=== PATIENT | female | born 1960 | race Caucasian/White ===

== ENCOUNTER 2024-10-04 16:08 | Emergency (ER) | payer BC, MEDICARE, MEDICAID, SELFPAY ==
[2024-10-04] VITALS (50 sets, daily range): BP systolic 145–190; BP diastolic 51–98; PULSE 69–94; TEMP 37.2; O2SAT 55–99; BMI 34.3
--- NOTE | 2024-10-04 16:12 | CT_ITS ---
The [address] [address] Patient Name: JOE KINCAID MRN: [id number] date: 1960 Sex: F Assigned Patient Location: ER Current Patient Location: ER Accession/Order Number: [id number] Exam Date: 10/04/2024 16:18 Report Date: 10/04/2024 16:56 At the request of: JOVI GRAY Procedure: CT stroke head/brain wo con EXAMINATION: CT stroke head/brain wo con TECHNIQUE: Axial CT images were obtained through the brain. Sagittal and coronal reformatted images were also obtained. Dose reduction techniques were achieved by using automated exposure control and/or adjustment of mA and/or kV according to patient size and/or use of iterative reconstruction technique. HISTORY: Confusion COMPARISON: None. FINDINGS: Intracranial Bleed: No evidence for acute intracranial bleed. Intracranial Mass: 10 mm extra-axial soft tissue density overlying the right frontal lobe superiorly. No mass effect or midline shift Extra-axial spaces: The ventricular system is normal caliber. White/[place] Matter: No acute cortical infarct. No significant white matter abnormality. Skull/Scalp: No evidence for skull fracture or lesion. Orbits and sinuses: The orbits appear unremarkable. Mild chronic appearing nodular mucosal thickening of the maxillary and sphenoid sinuses. CT/CT stroke head/brain wo con IMPRESSION: No convincing evidence for acute intracranial bleed. Small extra-axial soft tissue nodular focus over the right frontal lobe with apparent chronic pressure deformity of inner table of the skull. Question meningioma. Pre and postcontrast MRI of the brain should be considered for further evaluation. Electronically authenticated by: [email or web address] SANTOYO Date: 10/04/2024 16:56
--- NOTE | 2024-10-04 16:12 | ED.AMS1 ---
Documented by User: IAN Land 10/04/24 21:33 HPI - Altered Mental Status General Chief Complaint: Altered Mental Status Stated Complaint: AMS Time Seen by Provider: 10/04/24 16:12 Source: patient and EMR Mode of arrival: ambulance Limitations: altered mental status History of Present Illness HPI narrative: Patient is a 64-year-old female with a history of pulmonary embolism, end-stage renal disease on dialysis brought to the emergency department by EMS for altered mental status. Patient is able to tell that she is in a hospital and after thinking for several seconds knows that it is September 2024, she knows that she got dialysis in [place] where she lives but has no idea how she got to [facility] over 1 hour away. Patient knows that she finished dialysis around 1030 this morning. She arrives to this emergency department 6 hours later and is unable to account for how she got to the area. She does not believe she had any falls or injuries, EMS did not note any damage to her vehicle. She states she has been feeling more short of breath in the last day but has not had any significant fever, vomiting or chest pain. She states she has been on Eliquis for several months for a pulmonary embolism. She notes that she finished her entire dialysis treatment today. She states she feels weak all over but does not have any unilateral weakness, headaches or visual changes. She has chronic neuropathy to her feet that is not worse or different today. Related Data Home Medications ?Medication ?Instructions ?Recorded ?Confirmed amitriptyline 10 mg tablet 10 mg PO .QHS 10/04/24 10/05/24 amlodipine 10 mg tablet 10 mg PO DAILY 10/04/24 10/04/24 apixaban 5 mg tablet (Eliquis) 5 mg PO BID 10/04/24 10/04/24 aspirin 81 mg chewable tablet 81 mg PO DAILY 10/04/24 10/04/24 (Justus Chewable Low Dose Aspirin) calcium acetate 667 mg tablet 667 mg PO TID 10/04/24 10/04/24 carvedilol 25 mg tablet (Coreg) 25 mg PO BID 10/04/24 10/04/24 clonazepam 0.5 mg tablet (Klonopin) 0.25 mg PO BID PRN anxiety 10/04/24 10/05/24 doxazosin 8 mg tablet 8 mg PO DAILY 10/04/24 10/04/24 gabapentin 300 mg capsule 300 mg PO BID 10/04/24 10/04/24 (Neurontin) insulin glargine 100 unit/mL 10 unit subcut QPM 10/04/24 10/04/24 subcutaneous solution (Lantus U-100 Insulin) insulin lispro 100 unit/mL 5 unit subcut TID 10/04/24 10/04/24 subcutaneous solution levothyroxine 200 mcg tablet 200 mcg PO DAILY 10/04/24 10/04/24 (Synthroid) losartan 50 mg tablet 50 mg PO BID 10/04/24 10/04/24 omeprazole 40 mg capsule,delayed 40 mg PO DAILY 10/04/24 10/04/24 release torsemide 100 mg tablet 100 mg PO .CELINE, MAURO, MAYURI, SAT 10/04/24 10/04/24 tramadol 50 mg tablet 50 mg PO Q12H 10/04/24 10/04/24 isosorbide mononitrate 30 mg 30 mg PO DAILY 10/05/24 10/05/24 tablet,extended release 24 hr Allergies Allergy/AdvReac Type Severity Reaction Status Date / Time acetaminophen (From [address]) Allergy Severe Swelling Verified 10/04/24 17:01 of the Eye hydrocodone (From [address]) Allergy Severe Swelling Verified 10/04/24 17:01 of the Eye dandelion (Taraxacum Allergy Mild Hives Verified 10/04/24 17:01 officinale) FIDELINA Inhibitors Allergy Hives Verified 10/04/24 17:01 azithromycin Allergy Unknown Verified 10/04/24 17:01 quinapril Allergy Unknown Verified 10/04/24 17:01 rosuvastatin Allergy Unknown Verified 10/04/24 17:01 Review of Systems ROS Constitutional Denies: fever or chills Ears, nose, mouth, and throat Reports: nasal congestion; Denies: throat pain Cardiovascular Denies: chest pain Respiratory Reports: shortness of breath; Denies: cough Gastrointestinal Denies: nausea or vomiting Musculoskeletal Denies: back pain or neck pain Integumentary/Breast Denies: rash Neurological Denies: numbness in extremities or weakness in extremities Hematologic/Lymphatic Reports: easy bruising and easy bleeding [facility] Medical History (Updated 10/05/24 @ 06:26 by Vashti Du RN) TIA (transient ischemic attack) ?G45.9 - Transient cerebral ischemic attack, unspecified (ICD-10) Neuropathy ?G62.9 - Polyneuropathy, unspecified (ICD-10) Hypothyroid ?E03.9 - Hypothyroidism, unspecified (ICD-10) HTN (hypertension) ?I10 - Essential (primary) hypertension (ICD-10) Renal failure ?N19 - Unspecified kidney failure (ICD-10) Diabetes ?E11.9 - Type 2 diabetes mellitus without complications (ICD-10) Social History Little interest or pleasure in doing things: not at all Feeling down, depressed, or hopeless: not at all Exam Narrative Exam Narrative: Gen.: Awake, alert, in no distress Head: Normocephalic, atraumatic ENT: Moist mucous membranes Respiratory: No respiratory distress, lungs clear bilaterally Cardio: Regular rate and rhythm Gastrointestinal: Abdomen is soft, nondistended and nontender to palpation Extremities: Moves extremities equally, no injuries noted Psych: Normal mood and affect Neuro: No focal neuro deficit, clear speech, able to recall some events of the day. Follows all commands. Right hand with mild tremor, otherwise no unilateral weakness or facial drooping Skin: Warm, dry, intact Constitutional Vital Signs, click to edit/add: Last Vital Signs Temp 98.9 F 10/04/24 16:14 Pulse 83 10/05/24 21:27 Resp 16 10/05/24 21:27 BP 168/86 H 10/05/24 21:27 Pulse Ox 99 10/05/24 21:27 O2 Del Method Room Air 10/05/24 21:27 Course Vital Signs Vital signs: Vital Signs Temperature 98.9 F 10/04/24 16:14 Pulse Rate 80 10/04/24 16:14 Respiratory Rate 18 10/04/24 16:14 Blood Pressure 177/71 H 10/04/24 16:14 Pulse Oximetry 98 10/04/24 16:14 Oxygen Delivery Method Room Air 10/04/24 16:14 Temperature 98.9 F 10/04/24 16:14 Pulse Rate 83 10/05/24 21:27 Respiratory Rate 16 10/05/24 21:27 Blood Pressure 168/86 H 10/05/24 21:27 Pulse Oximetry 99 10/05/24 21:27 Oxygen Delivery Method Room Air 10/05/24 21:27 MDM - Altered Mental Status MDM Narrative Medical decision making narrative: On arrival to the ER, patient is amnestic to the last 7 hours. She was sent for CT was stroke protocol which is unremarkable. Chest x-ray with cardiomegaly, no other acute process. Patient is awake and alert, able to answer questions appropriately. She has no EKG changes, no complaints of chest pain. She did fall asleep and was briefly hypoxic for which oxygen was placed by nasal cannula but on waking, she is alert and oriented, not hypoxic or tachycardic and is able to eat and drink without difficulty. Laboratory studies consistent with chronic kidney disease, elevated BNP noted with no significant pulmonary edema on chest x-ray. As the patient is a dialysis patient, she is not able to be admitted to this facility. Lengthy discussion was had with Dr. Rodriguez and the patient at bedside discussing outpatient management for transient confusion versus admission for confusion/TIA workup. She is hemodynamically stable at this time. Patient stated that she preferred to be transferred to a facility closer to her home as she lives in [place]. Patient request transfer to [facility] Where she has been seen previously. We contacted [facility] ([id number]) at which time we were informed that the patient cannot be transferred to their facility due to bed availability. [facility] transfer line stated that the patient could be transferred to [place], possibly [place] tomorrow and [facility] may have observation beds. Patient was agreeable to transfer to [place] and the case was discussed with Dr. Cruz ([id number]) who stated that the patient's records appear to be through the [facility] and he recommended transferring the patient to their facility. I discussed this with the patient's daughter over the phone, she did present to the ER. She request transfer to [facility] due to proximity to their home. Transfer line at [facility] was contacted (2021). We are awaiting a phone call back from [facility] at this time. On daughter's arrival to the emergency department, she questions if the patient should just be discharged and they will take her home and call 911 to have her taken to [facility]. I explained that the patient cannot be refused by 911 but would be signing out AGAINST MEDICAL ADVICE and would need to be seen again in the emergency department with a complete restart of her entire workup. Daughter verbalizes understanding at this time and we are awaiting a call from [place]. 2127: Patient accepted by Dr. James ([id number]) at [facility] for transfer for altered mental status. Bed assignment is pending at this time. Patient is stable. Case turned over to attending physician at this time for further management. Critical care time 35min SHARED APC VISIT, PHYSICIAN ATTESTATION: [id number] I performed a substantive part of the MDM during the patient?s E/M visit. I personally evaluated and examined the patient. I personally made or approved the documented management plan and acknowledge its risk of complications. Medical Records Attestation: I reviewed the patient's medical records. Lab Data Attestation: I reviewed the patient's lab results. Labs: Lab Results 10/04/24 10/04/24 10/04/24 Range/Units 16:35 16:41 18:17 WBC 12.3 H (4.0-11.0) 10^3/uL RBC 3.72 L (4.20-5.40) 10^6/uL Hgb 10.1 L (12.0-16.0) g/dL Hct 30.8 L (36.0-48.0) % MCV 82.8 (81.0-99.0) fL MCH 27.2 (26.7-34.0) pg MCHC 32.8 (29.9-35.2) g/dL RDW 15.0 (11.0-15.0) % Plt Count 243 (150-450) 10^3/uL MPV 9.6 (9.5-13.5) fL Neut % (Auto) 70.9 (43.0-75.0) % Lymph % (Auto) 17.5 L (20.5-60.0) % [place] % (Auto) 7.6 (1.7-12.0) % Eos % (Auto) 1.3 (0.9-7.0) % Baso % (Auto) 0.4 (0.2-2.0) % Neut # (Auto) 8.7 H (1.4-6.5) 10^3/uL Lymph # (Auto) 2.2 (1.2-3.8) 10^3/uL [place] # (Auto) 0.9 H (0.3-0.8) 10^3/uL Eos # (Auto) 0.2 (0.0-0.7) 10^3/uL Baso # (Auto) 0.1 (0.0-0.1) 10^3/uL Abs Immat Gran (auto) 0.28 H (0.00-0.03) 10^3/uL Imm/Tot Granulo (auto) 2.3 H (0.0-0.5) % PT 10.6 (9.0-11.6) sec INR 1.00 VBG pH 7.480 H (7.330-7.430) VBG pCO2 45.2 (40.0-52.0) mmHg Sodium 135 L (136-145) mmol/L Potassium 4.3 (3.5-5.1) mmol/L Chloride 94 L (98-107) mmol/L Carbon Dioxide 30.9 (21.0-32.0) mmol/L Anion Gap 14.4 BUN 35.0 H (7.0-18.0) mg/dL Creatinine 5.30 H* (0.55-1.02) mg/dL Est GFR ( Amer) 10 L (>=60 mL/min/1.73m^2) Est GFR (Non-Af Amer) 8 L (>=60 mL/min/1.73m^2) BUN/Creatinine Ratio 6.6 Glucose 264 H (74-106) mg/dL Lactate 1.6 (0.4-2.0) mmol/L Calcium 9.3 (8.5-10.1) mg/dL Magnesium 2.0 (1.8-2.4) mg/dL Total Bilirubin 0.5 (0.2-1.0) mg/dL AST 11 L (15-37) U/L ALT 12 L (14-59) U/L Alkaline Phosphatase 86 (46-116) U/L Ammonia <10 L (11-32) umol/L Troponin I High Sens 12.2 (4.0-51.3) pg/mL NT-Pro-B Natriuret Pep 50548.0 H* (<=900.0) pg/mL Total Protein 8.1 (6.4-8.2) g/dL Albumin 3.1 L (3.4-5.0) g/dL Globulin 5.0 g/dL Albumin/Globulin Ratio 0.6 TSH 3.876 H (0.358-3.740) uIU/mL Urine Color Yellow (YELLOW) Urine Clarity Clear (CLEAR) Urine pH 7.0 (5.0-9.0) Ur Specific [place] 1.015 (1.005-1.025) Urine Protein >=300 A (NEG/TRACE) mg/dL Urine Glucose (UA) >=1000 A (NEGATIVE) mg/dL Urine Ketones Trace A (NEGATIVE) mg/dL Urine Occult Blood Small A (NEGATIVE) Urine Nitrite Negative (NEGATIVE) Urine Bilirubin Negative (NEGATIVE) Urine Urobilinogen 0.2 (0.2-1.0) EU/dL Ur Leukocyte Esterase Negative (NEGATIVE) Urine RBC 0-2 (0-2) #/HPF Urine WBC 2-5 A (NONE SEEN) #/HPF Ur Squamous Epith Cells None seen (NONE/RARE) #/LPF Urine Crystals Seen A (None Seen) #/HPF Amorphous Sediment Many Urine Bacteria Small A (NONE SEEN) #/HPF Urine Casts None seen (NONE SEEN) #/LPF Urine Mucus None seen (NONE SEEN) Ur Culture Indicated? Yes-lc Urine Opiates Screen Negative (NEGATIVE) Ur Buprenorphine Scrn Negative (NEGATIVE) Ur Oxycodone Screen Negative (NEGATIVE) Urine Methadone Screen Negative (NEGATIVE) Ur Barbiturates Screen Negative (NEGATIVE) U Tricyclic Antidepress Negative (NEGATIVE) Ur Phencyclidine Scrn Negative (NEGATIVE) Ur Amphetamines Screen Negative (NEGATIVE) U Methamphetamines Scrn Negative (NEGATIVE) U Benzodiazepines Scrn Negative (NEGATIVE) Urine Cocaine Screen Negative (NEGATIVE) U Cannabinoids Screen Negative (NEGATIVE) Ethanol Quant <3 mg/dL Acetone, Qual Negative (NEGATIVE) Influenza Type A Ag Negative Influenza Type B Ag Negative SARS-CoV-2 Ag (CV2AG) Negative (NEGATIVE) Imaging Data CT scan - head: Attestation: I have reviewed the pertinent imaging results. Radiologist's impression: ITS Impressions Brain CT 10/04/24 16:12 IMPRESSION: No convincing evidence for acute intracranial bleed. Small extra-axial soft tissue nodular focus over the right frontal lobe with apparent chronic pressure deformity of inner table of the skull. Question meningioma. Pre and postcontrast MRI of the brain should be considered for further evaluation. Electronically authenticated by: [email or web address] SANTOYO Date: 10/04/2024 16:56 Chest X-Ray 10/04/24 16:23 IMPRESSION: 1. Lungs are clear. 2. Cardiomegaly. Electronically authenticated by: GAIL ORTIZ Date: 10/04/2024 18:29 ECG Data Attestation: I personally reviewed and interpreted this ECG as follows: (Normal sinus rhythm at a rate of 77, artifact noted with no acute ST elevation or ectopy. EKG reviewed by attending physician) Critical Care Time Critical Care Time Critical Care Time: Yes Total Critical Care Time: 35 Attestation: 35 minutes of critical care time assessed for evaluation, transfer to tertiary care Discharge Plan Discharge Chief Complaint: Altered Mental Status Clinical Impression: Altered mental status, Acute confusion, Acute hyperglycemia, Generalized weakness Patient Disposition: Home, Self-Care Time of Disposition Decision: 21:32 Condition: Good Mode of Transportation: Private Vehicle Prescriptions / Home Meds: No Action amitriptyline 10 mg tablet 10 mg PO .QHS Patient Comments: at bedtime amlodipine 10 mg tablet 10 mg PO DAILY Eliquis 5 mg tablet 5 mg PO BID aspirin [Justus Chewable Aspirin] 81 mg tablet,chewable 81 mg PO DAILY calcium acetate 667 mg tablet 667 mg PO TID carvedilol [Coreg] 25 mg tablet 25 mg PO BID Rx Instructions: must administer with a meal/food clonazepam [Klonopin] 0.5 mg tablet 0.25 mg PO BID PRN (Reason: anxiety) doxazosin 8 mg tablet 8 mg PO DAILY gabapentin [Neurontin] 300 mg capsule 300 mg PO BID insulin glargine [Lantus U-100 Insulin] 100 unit/mL solution 10 unit subcut QPM insulin lispro 100 unit/mL solution 5 unit subcut TID levothyroxine [Synthroid] 200 mcg tablet 200 mcg PO DAILY losartan 50 mg tablet 50 mg PO BID omeprazole 40 mg capsule,delayed release(DR/EC) 40 mg PO DAILY torsemide 100 mg tablet 100 mg PO .MAURO BERGER THUR, SAT Patient Comments: takes on non-dialysis Rx Instructions: 100 mg orally; tramadol 50 mg tablet 50 mg PO Q12H isosorbide mononitrate 30 mg tablet extended release 24 hr 30 mg PO DAILY Print Language: Croatian Instructions: Acute Delirium (ED) Additional Instructions: Call the office of your primary care doctor to arrange for follow-up within the above-stated timeframe. Your ED visit was focused on your acute issue and does not replace primary care. You should review your labs, imaging, and diagnoses from this ED visit with your primary care physician. There may be non-emergent/ incidental findings that need further evaluation. You should review your vital signs including blood pressure with your PCP. If you were prescribed medications you should discuss possible side-effects and drug interactions with your pharmacist. Call 911 or go to the nearest Emergency Department if you develop any new or worsening symptoms. Keep your dialysis appointment tomorrow. Attend with a family member or friend, do not drive yourself home this time. 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 Corbin as well as your primary care doctor this week to discuss your episode further. Return to the emergency department if there are any further issues as discussed. Referrals: Physician,Non-Staff, [Primary Care Provider] - 1 week Discharge Date/Time: 10/05/24 21:48 Documented by User: Mingo Jerez MD 10/05/24 18:24 HPI - Altered Mental Status General Chief Complaint: Altered Mental Status Stated Complaint: AMS Time Seen by Provider: 10/04/24 16:12 Related Data Home Medications ?Medication ?Instructions ?Recorded ?Confirmed amitriptyline 10 mg tablet 10 mg PO .QHS 10/04/24 10/05/24 amlodipine 10 mg tablet 10 mg PO DAILY 10/04/24 10/04/24 apixaban 5 mg tablet (Eliquis) 5 mg PO BID 10/04/24 10/04/24 aspirin 81 mg chewable tablet 81 mg PO DAILY 10/04/24 10/04/24 (Justus Chewable Low Dose Aspirin) calcium acetate 667 mg tablet 667 mg PO TID 10/04/24 10/04/24 carvedilol 25 mg tablet (Coreg) 25 mg PO BID 10/04/24 10/04/24 clonazepam 0.5 mg tablet (Klonopin) 0.25 mg PO BID PRN anxiety 10/04/24 10/05/24 doxazosin 8 mg tablet 8 mg PO DAILY 10/04/24 10/04/24 gabapentin 300 mg capsule 300 mg PO BID 10/04/24 10/04/24 (Neurontin) insulin glargine 100 unit/mL 10 unit subcut QPM 10/04/24 10/04/24 subcutaneous solution (Lantus U-100 Insulin) insulin lispro 100 unit/mL 5 unit subcut TID 10/04/24 10/04/24 subcutaneous solution levothyroxine 200 mcg tablet 200 mcg PO DAILY 10/04/24 10/04/24 (Synthroid) losartan 50 mg tablet 50 mg PO BID 10/04/24 10/04/24 omeprazole 40 mg capsule,delayed 40 mg PO DAILY 10/04/24 10/04/24 release torsemide 100 mg tablet 100 mg PO .CELINE, MAURO, MAYURI, SAT 10/04/24 10/04/24 tramadol 50 mg tablet 50 mg PO Q12H 10/04/24 10/04/24 isosorbide mononitrate 30 mg 30 mg PO DAILY 10/05/24 10/05/24 tablet,extended release 24 hr Allergies Allergy/AdvReac Type Severity Reaction Status Date / Time acetaminophen (From [address]) Allergy Severe Swelling Verified 10/04/24 17:01 of the Eye hydrocodone (From [address]) Allergy Severe Swelling Verified 10/04/24 17:01 of the Eye dandelion (Taraxacum Allergy Mild Hives Verified 10/04/24 17:01 officinale) FIDELINA Inhibitors Allergy Hives Verified 10/04/24 17:01 azithromycin Allergy Unknown Verified 10/04/24 17:01 quinapril Allergy Unknown Verified 10/04/24 17:01 rosuvastatin Allergy Unknown Verified 10/04/24 17:01 [facility] Medical History (Updated 10/05/24 @ 06:26 by Vashti Du RN) TIA (transient ischemic attack) ?G45.9 - Transient cerebral ischemic attack, unspecified (ICD-10) Neuropathy ?G62.9 - Polyneuropathy, unspecified (ICD-10) Hypothyroid ?E03.9 - Hypothyroidism, unspecified (ICD-10) HTN (hypertension) ?I10 - Essential (primary) hypertension (ICD-10) Renal failure ?N19 - Unspecified kidney failure (ICD-10) Diabetes ?E11.9 - Type 2 diabetes mellitus without complications (ICD-10) Social History Little interest or pleasure in doing things: not at all Feeling down, depressed, or hopeless: not at all Exam Constitutional Vital Signs, click to edit/add: Last Vital Signs Temp 98.9 F 10/04/24 16:14 Pulse 83 10/05/24 21:27 Resp 16 10/05/24 21:27 BP 168/86 H 10/05/24 21:27 Pulse Ox 99 10/05/24 21:27 O2 Del Method Room Air 10/05/24 21:27 Course Vital Signs Vital signs: Vital Signs Temperature 98.9 F 10/04/24 16:14 Pulse Rate 80 10/04/24 16:14 Respiratory Rate 18 10/04/24 16:14 Blood Pressure 177/71 H 10/04/24 16:14 Pulse Oximetry 98 10/04/24 16:14 Oxygen Delivery Method Room Air 10/04/24 16:14 Temperature 98.9 F 10/04/24 16:14 Pulse Rate 83 10/05/24 21:27 Respiratory Rate 16 10/05/24 21:27 Blood Pressure 168/86 H 10/05/24 21:27 Pulse Oximetry 99 10/05/24 21:27 Oxygen Delivery Method Room Air 10/05/24 21:27 MDM - Altered Mental Status MDM Narrative Medical decision making narrative: On arrival to the ER, patient is amnestic to the last 7 hours. She was sent for CT was stroke protocol which is unremarkable. Chest x-ray with cardiomegaly, no other acute process. Patient is awake and alert, able to answer questions appropriately. She has no EKG changes, no complaints of chest pain. She did fall asleep and was briefly hypoxic for which oxygen was placed by nasal cannula but on waking, she is alert and oriented, not hypoxic or tachycardic and is able to eat and drink without difficulty. Laboratory studies consistent with chronic kidney disease, elevated BNP noted with no significant pulmonary edema on chest x-ray. As the patient is a dialysis patient, she is not able to be admitted to this facility. Lengthy discussion was had with Dr. Rodriguez and the patient at bedside discussing outpatient management for transient confusion versus admission for confusion/TIA workup. She is hemodynamically stable at this time. Patient stated that she preferred to be transferred to a facility closer to her home as she lives in [place]. Patient request transfer to [facility] Where she has been seen previously. We contacted [facility] ([id number]) at which time we were informed that the patient cannot be transferred to their facility due to bed availability. [facility] transfer line stated that the patient could be transferred to [place], possibly [place] tomorrow and [facility] may have observation beds. Patient was agreeable to transfer to [place] and the case was discussed with Dr. Cruz ([id number]) who stated that the patient's records appear to be through the [facility] and he recommended transferring the patient to their facility. I discussed this with the patient's daughter over the phone, she did present to the ER. She request transfer to [facility] due to proximity to their home. Transfer line at [facility] was contacted (2021). We are awaiting a phone call back from [facility] at this time. On daughter's arrival to the emergency department, she questions if the patient should just be discharged and they will take her home and call 911 to have her taken to [facility]. I explained that the patient cannot be refused by 911 but would be signing out AGAINST MEDICAL ADVICE and would need to be seen again in the emergency department with a complete restart of her entire workup. Daughter verbalizes understanding at this time and we are awaiting a call from [place]. 2127: Patient accepted by Dr. James ([id number]) at [facility] for transfer for altered mental status. Bed assignment is pending at this time. Patient is stable. Case turned over to attending physician at this time for further management. Critical care time 35min SHARED APC VISIT, PHYSICIAN ATTESTATION: [id number] I performed a substantive part of the MDM during the patient?s E/M visit. I personally evaluated and examined the patient. I personally made or approved the documented management plan and acknowledge its risk of complications. ED Daily Rounding Note: HPI: Care was signed out to me by Dr. Gomez at 7 AM on 10/05. Patient was seen and evaluated by myself at the bedside at 0830. She presented to the emergency department yesterday after being found confused in [place] after she was driving home from dialysis yesterday. She had no events overnight. Her vitals remained stable. She has no complaints at this time, reports she feels at her baseline. Exam: VITALS: I have reviewed the triage vital signs. GENERAL: Well developed, well appearing adult female in no acute distress. NEURO: Alert and oriented x4. Moves all extremities. Face is symmetric and expressive. Cranial nerves II through XII grossly intact as tested. Muscular strength and sensation grossly intact upper and lower extremities bilaterally. No dysarthria. No aphasia. No ataxia. Normal gait. NIHSS 0. EYES: PERRL. No scleral icterus or conjunctival injection. No discharge. HENT: Normocephalic, atraumatic. Hearing is grossly intact. Nares grossly patent and without discharge. Mucous membranes moist. NECK: No JVD. Patient moves neck without restriction. CARDIO: Rhythm regular. Normal rate. No murmur, rub, or gallop. Pulses equal bilaterally in the upper and lower extremity. No lower extremity edema. PULM: Lungs clear to auscultation in all esposito. No wheezes, rales, or rhonchi. No conversational dyspnea. No splinting, stridor, or accessory muscle use. GI/: Abdomen is soft and non-tender. Normoactive bowel sounds. EXTREMITIES: Symmetric muscle bulk. No joint swelling. No clubbing, cyanosis, or deformity. Fistula with palpable thrill in the right upper extremity. SKIN: Warm and dry. Normal turgor. No rash or lesions appreciated. PSYCH: Mood, affect, and interaction is appropriate to the setting. Assessment/Plan: Encephalopathy - Resolved, patient back to her baseline. Alert and oriented x 4. No focal neurologic deficits. - CT head is negative. No major laboratory abnormalities. No evidence of infectious process. - Will order an MRI of the brain to rule out acute ischemic stroke. ESRD on dialysis - Patient dialyzed to completion yesterday. - No major electrolyte abnormalities. She is not volume overloaded at this time, actually below her dry weight goal of 93.5 kg per outpatient nephrology note. No O2 requirement. - Neph Dr. Corbin, Dialysis center [facility] - No need for urgent dialysis/deviation from outpatient schedule Chronic hypertension -Continue home meds Neuropathy -Continue home meds Mingo Jerez DO, FAAEM Update 18:21- Vitals remained stable. Neurologic examination remains nonfocal. She remains alert and oriented and at her baseline. She is boarded in the emergency department for 24 hours. Her MRI imaging did not reveal any evidence of stroke. Given the transient nature differential includes TIA versus dialysis related hypotension versus dialysis disequilibrium syndrome versus hypoglycemia. TIA less likely with isolated confusion. Patient has stroke and is currently on medical therapy for this including antiplatelet agent, anticoagulation. She is statin allergic. Given her negative MRI, stable neurologic exam/mental status over the last 24 hours I believe she is likely appropriate for discharge home at this point and follow-up with her doctor as an outpatient. I did call and discussed with Dr. Ness, who is failure with the patient and on-call for the patient's hopper filler Dr. Corbin. After discussion of the patient's history, presentation, diagnostic workup and clinical course in the emergency department she believes that she is appropriate for discharge home and maintaining her dialysis appointment for tomorrow. Likely transient dialysis related etiology of her confusion. I discussed this plan with the patient. She feels comfortable with this. She will follow-up with her hopper filler and her primary care doctor about this. She is instructed return to the emergency department with any changes. I recommended that a family member attend dialysis with her tomorrow. Mingo Jerez DO, FAAEM Lab Data Labs: Lab Results 10/04/24 10/04/24 10/04/24 Range/Units 16:35 16:41 18:17 WBC 12.3 H (4.0-11.0) 10^3/uL RBC 3.72 L (4.20-5.40) 10^6/uL Hgb 10.1 L (12.0-16.0) g/dL Hct 30.8 L (36.0-48.0) % MCV 82.8 (81.0-99.0) fL MCH 27.2 (26.7-34.0) pg MCHC 32.8 (29.9-35.2) g/dL RDW 15.0 (11.0-15.0) % Plt Count 243 (150-450) 10^3/uL MPV 9.6 (9.5-13.5) fL Neut % (Auto) 70.9 (43.0-75.0) % Lymph % (Auto) 17.5 L (20.5-60.0) % [place] % (Auto) 7.6 (1.7-12.0) % Eos % (Auto) 1.3 (0.9-7.0) % Baso % (Auto) 0.4 (0.2-2.0) % Neut # (Auto) 8.7 H (1.4-6.5) 10^3/uL Lymph # (Auto) 2.2 (1.2-3.8) 10^3/uL [place] # (Auto) 0.9 H (0.3-0.8) 10^3/uL Eos # (Auto) 0.2 (0.0-0.7) 10^3/uL Baso # (Auto) 0.1 (0.0-0.1) 10^3/uL Abs Immat Gran (auto) 0.28 H (0.00-0.03) 10^3/uL Imm/Tot Granulo (auto) 2.3 H (0.0-0.5) % PT 10.6 (9.0-11.6) sec INR 1.00 VBG pH 7.480 H (7.330-7.430) VBG pCO2 45.2 (40.0-52.0) mmHg Sodium 135 L (136-145) mmol/L Potassium 4.3 (3.5-5.1) mmol/L Chloride 94 L (98-107) mmol/L Carbon Dioxide 30.9 (21.0-32.0) mmol/L Anion Gap 14.4 BUN 35.0 H (7.0-18.0) mg/dL Creatinine 5.30 H* (0.55-1.02) mg/dL Est GFR ( Amer) 10 L (>=60 mL/min/1.73m^2) Est GFR (Non-Af Amer) 8 L (>=60 mL/min/1.73m^2) BUN/Creatinine Ratio 6.6 Glucose 264 H (74-106) mg/dL Lactate 1.6 (0.4-2.0) mmol/L Calcium 9.3 (8.5-10.1) mg/dL Magnesium 2.0 (1.8-2.4) mg/dL Total Bilirubin 0.5 (0.2-1.0) mg/dL AST 11 L (15-37) U/L ALT 12 L (14-59) U/L Alkaline Phosphatase 86 (46-116) U/L Ammonia <10 L (11-32) umol/L Troponin I High Sens 12.2 (4.0-51.3) pg/mL NT-Pro-B Natriuret Pep 13136.0 H* (<=900.0) pg/mL Total Protein 8.1 (6.4-8.2) g/dL Albumin 3.1 L (3.4-5.0) g/dL Globulin 5.0 g/dL Albumin/Globulin Ratio 0.6 TSH 3.876 H (0.358-3.740) uIU/mL Urine Color Yellow (YELLOW) Urine Clarity Clear (CLEAR) Urine pH 7.0 (5.0-9.0) Ur Specific [place] 1.015 (1.005-1.025) Urine Protein >=300 A (NEG/TRACE) mg/dL Urine Glucose (UA) >=1000 A (NEGATIVE) mg/dL Urine Ketones Trace A (NEGATIVE) mg/dL Urine Occult Blood Small A (NEGATIVE) Urine Nitrite Negative (NEGATIVE) Urine Bilirubin Negative (NEGATIVE) Urine Urobilinogen 0.2 (0.2-1.0) EU/dL Ur Leukocyte Esterase Negative (NEGATIVE) Urine RBC 0-2 (0-2) #/HPF Urine WBC 2-5 A (NONE SEEN) #/HPF Ur Squamous Epith Cells None seen (NONE/RARE) #/LPF Urine Crystals Seen A (None Seen) #/HPF Amorphous Sediment Many Urine Bacteria Small A (NONE SEEN) #/HPF Urine Casts None seen (NONE SEEN) #/LPF Urine Mucus None seen (NONE SEEN) Ur Culture Indicated? Yes-lc Urine Opiates Screen Negative (NEGATIVE) Ur Buprenorphine Scrn Negative (NEGATIVE) Ur Oxycodone Screen Negative (NEGATIVE) Urine Methadone Screen Negative (NEGATIVE) Ur Barbiturates Screen Negative (NEGATIVE) U Tricyclic Antidepress Negative (NEGATIVE) Ur Phencyclidine Scrn Negative (NEGATIVE) Ur Amphetamines Screen Negative (NEGATIVE) U Methamphetamines Scrn Negative (NEGATIVE) U Benzodiazepines Scrn Negative (NEGATIVE) Urine Cocaine Screen Negative (NEGATIVE) U Cannabinoids Screen Negative (NEGATIVE) Ethanol Quant <3 mg/dL Acetone, Qual Negative (NEGATIVE) Influenza Type A Ag Negative Influenza Type B Ag Negative SARS-CoV-2 Ag (CV2AG) Negative (NEGATIVE) Imaging Data CT scan - head: Radiologist's impression: ITS Impressions Brain CT 10/04/24 16:12 IMPRESSION: No convincing evidence for acute intracranial bleed. Small extra-axial soft tissue nodular focus over the right frontal lobe with apparent chronic pressure deformity of inner table of the skull. Question meningioma. Pre and postcontrast MRI of the brain should be considered for further evaluation. Electronically authenticated by: KRZYSZTOF SANTOYO Date: 10/04/2024 16:56 Chest X-Ray 10/04/24 16:23 IMPRESSION: 1. Lungs are clear. 2. Cardiomegaly. Electronically authenticated by: GAIL ORTIZ Date: 10/04/2024 18:29 Discharge Plan Discharge Chief Complaint: Altered Mental Status Clinical Impression: Altered mental status, Acute confusion, Acute hyperglycemia, Generalized weakness Patient Disposition: Home, Self-Care Time of Disposition Decision: 21:32 Condition: Good Mode of Transportation: Private Vehicle Prescriptions / Home Meds: No Action amitriptyline 10 mg tablet 10 mg PO .QHS Patient Comments: at bedtime amlodipine 10 mg tablet 10 mg PO DAILY Eliquis 5 mg tablet 5 mg PO BID aspirin [Justus Chewable Aspirin] 81 mg tablet,chewable 81 mg PO DAILY calcium acetate 667 mg tablet 667 mg PO TID carvedilol [Coreg] 25 mg tablet 25 mg PO BID Rx Instructions: must administer with a meal/food clonazepam [Klonopin] 0.5 mg tablet 0.25 mg PO BID PRN (Reason: anxiety) doxazosin 8 mg tablet 8 mg PO DAILY gabapentin [Neurontin] 300 mg capsule 300 mg PO BID insulin glargine [Lantus U-100 Insulin] 100 unit/mL solution 10 unit subcut QPM insulin lispro 100 unit/mL solution 5 unit subcut TID levothyroxine [Synthroid] 200 mcg tablet 200 mcg PO DAILY losartan 50 mg tablet 50 mg PO BID omeprazole 40 mg capsule,delayed release(DR/EC) 40 mg PO DAILY torsemide 100 mg tablet 100 mg PO .MAURO BERGER THUR, BRENDA Patient Comments: takes on non-dialysis Rx Instructions: 100 mg orally; tramadol 50 mg tablet 50 mg PO Q12H isosorbide mononitrate 30 mg tablet extended release 24 hr 30 mg PO DAILY Print Language: Croatian Instructions: Acute Delirium (ED) Additional Instructions: Call the office of your primary care doctor to arrange for follow-up within the above-stated timeframe. Your ED visit was focused on your acute issue and does not replace primary care. You should review your labs, imaging, and diagnoses from this ED visit with your primary care physician. There may be non-emergent/ incidental findings that need further evaluation. You should review your vital signs including blood pressure with your PCP. If you were prescribed medications you should discuss possible side-effects and drug interactions with your pharmacist. Call 911 or go to the nearest Emergency Department if you develop any new or worsening symptoms. Keep your dialysis appointment tomorrow. Attend with a family member or friend, do not drive yourself home this time. 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 Corbin as well as your primary care doctor this week to discuss your episode further. Return to the emergency department if there are any further issues as discussed. Referrals: Physician,Non-Staff, [Primary Care Provider] - 1 week Discharge Date/Time: 10/05/24 21:48 Documented by User: Christos Rodriguez MD 10/07/24 20:58 HPI - Altered Mental Status General Chief Complaint: Altered Mental Status Stated Complaint: AMS Time Seen by Provider: 10/04/24 16:12 Related Data Home Medications ?Medication ?Instructions ?Recorded ?Confirmed amitriptyline 10 mg tablet 10 mg PO .QHS 10/04/24 10/05/24 amlodipine 10 mg tablet 10 mg PO DAILY 10/04/24 10/04/24 apixaban 5 mg tablet (Eliquis) 5 mg PO BID 10/04/24 10/04/24 aspirin 81 mg chewable tablet 81 mg PO DAILY 10/04/24 10/04/24 (Justus Chewable Low Dose Aspirin) calcium acetate 667 mg tablet 667 mg PO TID 10/04/24 10/04/24 carvedilol 25 mg tablet (Coreg) 25 mg PO BID 10/04/24 10/04/24 clonazepam 0.5 mg tablet (Klonopin) 0.25 mg PO BID PRN anxiety 10/04/24 10/05/24 doxazosin 8 mg tablet 8 mg PO DAILY 10/04/24 10/04/24 gabapentin 300 mg capsule 300 mg PO BID 10/04/24 10/04/24 (Neurontin) insulin glargine 100 unit/mL 10 unit subcut QPM 10/04/24 10/04/24 subcutaneous solution (Lantus U-100 Insulin) insulin lispro 100 unit/mL 5 unit subcut TID 10/04/24 10/04/24 subcutaneous solution levothyroxine 200 mcg tablet 200 mcg PO DAILY 10/04/24 10/04/24 (Synthroid) losartan 50 mg tablet 50 mg PO BID 10/04/24 10/04/24 omeprazole 40 mg capsule,delayed 40 mg PO DAILY 10/04/24 10/04/24 release torsemide 100 mg tablet 100 mg PO .CELINE, MAURO, MAYURI, SAT 10/04/24 10/04/24 tramadol 50 mg tablet 50 mg PO Q12H 10/04/24 10/04/24 isosorbide mononitrate 30 mg 30 mg PO DAILY 10/05/24 10/05/24 tablet,extended release 24 hr Allergies Allergy/AdvReac Type Severity Reaction Status Date / Time acetaminophen (From [address]) Allergy Severe Swelling Verified 10/04/24 17:01 of the Eye hydrocodone (From [address]) Allergy Severe Swelling Verified 10/04/24 17:01 of the Eye dandelion ([place] Allergy Mild Hives Verified 10/04/24 17:01 officinale) FIDELINA Inhibitors Allergy Hives Verified 10/04/24 17:01 azithromycin Allergy Unknown Verified 10/04/24 17:01 quinapril Allergy Unknown Verified 10/04/24 17:01 rosuvastatin Allergy Unknown Verified 10/04/24 17:01 [facility] Medical History (Updated 10/05/24 @ 06:26 by Vashti Du RN) TIA (transient ischemic attack) ?G45.9 - Transient cerebral ischemic attack, unspecified (ICD-10) Neuropathy ?G62.9 - Polyneuropathy, unspecified (ICD-10) Hypothyroid ?E03.9 - Hypothyroidism, unspecified (ICD-10) HTN (hypertension) ?I10 - Essential (primary) hypertension (ICD-10) Renal failure ?N19 - Unspecified kidney failure (ICD-10) Diabetes ?E11.9 - Type 2 diabetes mellitus without complications (ICD-10) Social History Little interest or pleasure in doing things: not at all Feeling down, depressed, or hopeless: not at all Exam Constitutional Vital Signs, click to edit/add: Last Vital Signs Temp 98.9 F 10/04/24 16:14 Pulse 83 10/05/24 21:27 Resp 16 10/05/24 21:27 BP 168/86 H 10/05/24 21:27 Pulse Ox 99 10/05/24 21:27 O2 Del Method Room Air 10/05/24 21:27 Course Vital Signs Vital signs: Vital Signs Temperature 98.9 F 10/04/24 16:14 Pulse Rate 80 10/04/24 16:14 Respiratory Rate 18 10/04/24 16:14 Blood Pressure 177/71 H 10/04/24 16:14 Pulse Oximetry 98 10/04/24 16:14 Oxygen Delivery Method Room Air 10/04/24 16:14 Temperature 98.9 F 10/04/24 16:14 Pulse Rate 83 10/05/24 21:27 Respiratory Rate 16 10/05/24 21:27 Blood Pressure 168/86 H 10/05/24 21:27 Pulse Oximetry 99 10/05/24 21:27 Oxygen Delivery Method Room Air 10/05/24 21:27 MDM - Altered Mental Status MDM Narrative Medical decision making narrative: On arrival to the ER, patient is amnestic to the last 7 hours. She was sent for CT was stroke protocol which is unremarkable. Chest x-ray with cardiomegaly, no other acute process. Patient is awake and alert, able to answer questions appropriately. She has no EKG changes, no complaints of chest pain. She did fall asleep and was briefly hypoxic for which oxygen was placed by nasal cannula but on waking, she is alert and oriented, not hypoxic or tachycardic and is able to eat and drink without difficulty. Laboratory studies consistent with chronic kidney disease, elevated BNP noted with no significant pulmonary edema on chest x-ray. As the patient is a dialysis patient, she is not able to be admitted to this facility. Lengthy discussion was had with Dr. Rodriguez and the patient at bedside discussing outpatient management for transient confusion versus admission for confusion/TIA workup. She is hemodynamically stable at this time. Patient stated that she preferred to be transferred to a facility closer to her home as she lives in [place]. Patient request transfer to [facility] Where she has been seen previously. We contacted [facility] ([id number]) at which time we were informed that the patient cannot be transferred to their facility due to bed availability. [facility] transfer line stated that the patient could be transferred to [place], possibly [place] tomorrow and [facility] may have observation beds. Patient was agreeable to transfer to [place] and the case was discussed with Dr. Cruz ([id number]) who stated that the patient's records appear to be through the [facility] and he recommended transferring the patient to their facility. I discussed this with the patient's daughter over the phone, she did present to the ER. She request transfer to [facility] due to proximity to their home. Transfer line at [facility] was contacted ([id number]). We are awaiting a phone call back from [facility] at this time. On daughter's arrival to the emergency department, she questions if the patient should just be discharged and they will take her home and call 911 to have her taken to [facility]. I explained that the patient cannot be refused by 911 but would be signing out AGAINST MEDICAL ADVICE and would need to be seen again in the emergency department with a complete restart of her entire workup. Daughter verbalizes understanding at this time and we are awaiting a call from [place]. 2127: Patient accepted by Dr. James ([id number]) at [facility] for transfer for altered mental status. Bed assignment is pending at this time. Patient is stable. Case turned over to attending physician at this time for further management. Critical care time 45min Critical care time 45 minutes exclusive from separate billable procedures that were performed. The following was considered in the determination of critical care but not limited to the level of medical decision making, intensive cardiac and/or respiratory monitoring, frequent vital sign monitoring, evaluation of laboratory studies, evaluation of radiographic studies, oxygen monitoring, and constant monitoring and speaking to family at bedside SHARED APC VISIT, PHYSICIAN ATTESTATION: [id number] I performed a substantive part of the MDM during the patient?s E/M visit. I personally evaluated and examined the patient. I personally made or approved the documented management plan and acknowledge its risk of complications. I, Dr Rodriguez, have reviewed the above progress note and course of action in the ER; agree with the above. I have personally seen and evaluated this patient, gone over history and physical, and discussed disposition and treatment plan with the patient. ED Daily Rounding Note: HPI: Care was signed out to me by Dr. Gomez at 7 AM on 10/05. Patient was seen and evaluated by myself at the bedside at 0830. She presented to the emergency department yesterday after being found confused in [place] after she was driving home from dialysis yesterday. She had no events overnight. Her vitals remained stable. She has no complaints at this time, reports she feels at her baseline. Exam: VITALS: I have reviewed the triage vital signs. GENERAL: Well developed, well appearing adult female in no acute distress. NEURO: Alert and oriented x4. Moves all extremities. Face is symmetric and expressive. Cranial nerves II through XII grossly intact as tested. Muscular strength and sensation grossly intact upper and lower extremities bilaterally. No dysarthria. No aphasia. No ataxia. Normal gait. NIHSS 0. EYES: PERRL. No scleral icterus or conjunctival injection. No discharge. HENT: Normocephalic, atraumatic. Hearing is grossly intact. Nares grossly patent and without discharge. Mucous membranes moist. NECK: No JVD. Patient moves neck without restriction. CARDIO: Rhythm regular. Normal rate. No murmur, rub, or gallop. Pulses equal bilaterally in the upper and lower extremity. No lower extremity edema. PULM: Lungs clear to auscultation in all esposito. No wheezes, rales, or rhonchi. No conversational dyspnea. No splinting, stridor, or accessory muscle use. GI/: Abdomen is soft and non-tender. Normoactive bowel sounds. EXTREMITIES: Symmetric muscle bulk. No joint swelling. No clubbing, cyanosis, or deformity. Fistula with palpable thrill in the right upper extremity. SKIN: Warm and dry. Normal turgor. No rash or lesions appreciated. PSYCH: Mood, affect, and interaction is appropriate to the setting. Assessment/Plan: Encephalopathy - Resolved, patient back to her baseline. Alert and oriented x 4. No focal neurologic deficits. - CT head is negative. No major laboratory abnormalities. No evidence of infectious process. - Will order an MRI of the brain to rule out acute ischemic stroke. ESRD on dialysis - Patient dialyzed to completion yesterday. - No major electrolyte abnormalities. She is not volume overloaded at this time, actually below her dry weight goal of 93.5 kg per outpatient nephrology note. No O2 requirement. - Neph Dr. Corbin, Dialysis center [facility] - No need for urgent dialysis/deviation from outpatient schedule Chronic hypertension -Continue home meds Neuropathy -Continue home meds Mingo Jerez DO, FAAEM Update 18:21- Vitals remained stable. Neurologic examination remains nonfocal. She remains alert and oriented and at her baseline. She is boarded in the emergency department for 24 hours. Her MRI imaging did not reveal any evidence of stroke. Given the transient nature differential includes TIA versus dialysis related hypotension versus dialysis disequilibrium syndrome versus hypoglycemia. TIA less likely with isolated confusion. Patient has stroke and is currently on medical therapy for this including antiplatelet agent, anticoagulation. She is statin allergic. Given her negative MRI, stable neurologic exam/mental status over the last 24 hours I believe she is likely appropriate for discharge home at this point and follow-up with her doctor as an outpatient. I did call and discussed with Dr. Ness, who is failure with the patient and on-call for the patient's hopper filler Dr. Corbin. After discussion of the patient's history, presentation, diagnostic workup and clinical course in the emergency department she believes that she is appropriate for discharge home and maintaining her dialysis appointment for tomorrow. Likely transient dialysis related etiology of her confusion. I discussed this plan with the patient. She feels comfortable with this. She will follow-up with her hopper filler and her primary care doctor about this. She is instructed return to the emergency department with any changes. I recommended that a family member attend dialysis with her tomorrow. Mingo Jerez DO, FAAEM Lab Data Labs: Lab Results 10/04/24 10/04/24 10/04/24 Range/Units 16:35 16:41 18:17 WBC 12.3 H (4.0-11.0) 10^3/uL RBC 3.72 L (4.20-5.40) 10^6/uL Hgb 10.1 L (12.0-16.0) g/dL Hct 30.8 L (36.0-48.0) % MCV 82.8 (81.0-99.0) fL MCH 27.2 (26.7-34.0) pg MCHC 32.8 (29.9-35.2) g/dL RDW 15.0 (11.0-15.0) % Plt Count 243 (150-450) 10^3/uL MPV 9.6 (9.5-13.5) fL Neut % (Auto) 70.9 (43.0-75.0) % Lymph % (Auto) 17.5 L (20.5-60.0) % [place] % (Auto) 7.6 (1.7-12.0) % Eos % (Auto) 1.3 (0.9-7.0) % Baso % (Auto) 0.4 (0.2-2.0) % Neut # (Auto) 8.7 H (1.4-6.5) 10^3/uL Lymph # (Auto) 2.2 (1.2-3.8) 10^3/uL [place] # (Auto) 0.9 H (0.3-0.8) 10^3/uL Eos # (Auto) 0.2 (0.0-0.7) 10^3/uL Baso # (Auto) 0.1 (0.0-0.1) 10^3/uL Abs Immat Gran (auto) 0.28 H (0.00-0.03) 10^3/uL Imm/Tot Granulo (auto) 2.3 H (0.0-0.5) % PT 10.6 (9.0-11.6) sec INR 1.00 VBG pH 7.480 H (7.330-7.430) VBG pCO2 45.2 (40.0-52.0) mmHg Sodium 135 L (136-145) mmol/L Potassium 4.3 (3.5-5.1) mmol/L Chloride 94 L (98-107) mmol/L Carbon Dioxide 30.9 (21.0-32.0) mmol/L Anion Gap 14.4 BUN 35.0 H (7.0-18.0) mg/dL Creatinine 5.30 H* (0.55-1.02) mg/dL Est GFR ( Amer) 10 L (>=60 mL/min/1.73m^2) Est GFR (Non-Af Amer) 8 L (>=60 mL/min/1.73m^2) BUN/Creatinine Ratio 6.6 Glucose 264 H (74-106) mg/dL Lactate 1.6 (0.4-2.0) mmol/L Calcium 9.3 (8.5-10.1) mg/dL Magnesium 2.0 (1.8-2.4) mg/dL Total Bilirubin 0.5 (0.2-1.0) mg/dL AST 11 L (15-37) U/L ALT 12 L (14-59) U/L Alkaline Phosphatase 86 (46-116) U/L Ammonia <10 L (11-32) umol/L Troponin I High Sens 12.2 (4.0-51.3) pg/mL NT-Pro-B Natriuret Pep 32691.0 H* (<=900.0) pg/mL Total Protein 8.1 (6.4-8.2) g/dL Albumin 3.1 L (3.4-5.0) g/dL Globulin 5.0 g/dL Albumin/Globulin Ratio 0.6 TSH 3.876 H (0.358-3.740) uIU/mL Urine Color Yellow (YELLOW) Urine Clarity Clear (CLEAR) Urine pH 7.0 (5.0-9.0) Ur Specific [place] 1.015 (1.005-1.025) Urine Protein >=300 A (NEG/TRACE) mg/dL Urine Glucose (UA) >=1000 A (NEGATIVE) mg/dL Urine Ketones Trace A (NEGATIVE) mg/dL Urine Occult Blood Small A (NEGATIVE) Urine Nitrite Negative (NEGATIVE) Urine Bilirubin Negative (NEGATIVE) Urine Urobilinogen 0.2 (0.2-1.0) EU/dL Ur Leukocyte Esterase Negative (NEGATIVE) Urine RBC 0-2 (0-2) #/HPF Urine WBC 2-5 A (NONE SEEN) #/HPF Ur Squamous Epith Cells None seen (NONE/RARE) #/LPF Urine Crystals Seen A (None Seen) #/HPF Amorphous Sediment Many Urine Bacteria Small A (NONE SEEN) #/HPF Urine Casts None seen (NONE SEEN) #/LPF Urine Mucus None seen (NONE SEEN) Ur Culture Indicated? Yes-lc Urine Opiates Screen Negative (NEGATIVE) Ur Buprenorphine Scrn Negative (NEGATIVE) Ur Oxycodone Screen Negative (NEGATIVE) Urine Methadone Screen Negative (NEGATIVE) Ur Barbiturates Screen Negative (NEGATIVE) U Tricyclic Antidepress Negative (NEGATIVE) Ur Phencyclidine Scrn Negative (NEGATIVE) Ur Amphetamines Screen Negative (NEGATIVE) U Methamphetamines Scrn Negative (NEGATIVE) U Benzodiazepines Scrn Negative (NEGATIVE) Urine Cocaine Screen Negative (NEGATIVE) U Cannabinoids Screen Negative (NEGATIVE) Ethanol Quant <3 mg/dL Acetone, Qual Negative (NEGATIVE) Influenza Type A Ag Negative Influenza Type B Ag Negative SARS-CoV-2 Ag (CV2AG) Negative (NEGATIVE) Imaging Data CT scan - head: Radiologist's impression: ITS Impressions Brain CT 10/04/24 16:12 IMPRESSION: No convincing evidence for acute intracranial bleed. Small extra-axial soft tissue nodular focus over the right frontal lobe with apparent chronic pressure deformity of inner table of the skull. Question meningioma. Pre and postcontrast MRI of the brain should be considered for further evaluation. Electronically authenticated by: KRZYSZTOF SANTOYO Date: 10/04/2024 16:56 Chest X-Ray 10/04/24 16:23 IMPRESSION: 1. Lungs are clear. 2. Cardiomegaly. Electronically authenticated by: GAIL ORTIZ Date: 10/04/2024 18:29 Discharge Plan Discharge Chief Complaint: Altered Mental Status Clinical Impression: Altered mental status, Acute confusion, Acute hyperglycemia, Generalized weakness Patient Disposition: Home, Self-Care Time of Disposition Decision: 21:32 Condition: Good Mode of Transportation: Private Vehicle Prescriptions / Home Meds: No Action amitriptyline 10 mg tablet 10 mg PO .QHS Patient Comments: at bedtime amlodipine 10 mg tablet 10 mg PO DAILY Eliquis 5 mg tablet 5 mg PO BID aspirin [Justus Chewable Aspirin] 81 mg tablet,chewable 81 mg PO DAILY calcium acetate 667 mg tablet 667 mg PO TID carvedilol [Coreg] 25 mg tablet 25 mg PO BID Rx Instructions: must administer with a meal/food clonazepam [Klonopin] 0.5 mg tablet 0.25 mg PO BID PRN (Reason: anxiety) doxazosin 8 mg tablet 8 mg PO DAILY gabapentin [Neurontin] 300 mg capsule 300 mg PO BID insulin glargine [Lantus U-100 Insulin] 100 unit/mL solution 10 unit subcut QPM insulin lispro 100 unit/mL solution 5 unit subcut TID levothyroxine [Synthroid] 200 mcg tablet 200 mcg PO DAILY losartan 50 mg tablet 50 mg PO BID omeprazole 40 mg capsule,delayed release(DR/EC) 40 mg PO DAILY torsemide 100 mg tablet 100 mg PO .MAURO BERGER THUR, SAT Patient Comments: takes on non-dialysis Rx Instructions: 100 mg orally; tramadol 50 mg tablet 50 mg PO Q12H isosorbide mononitrate 30 mg tablet extended release 24 hr 30 mg PO DAILY Print Language: Croatian Instructions: Acute Delirium (ED) Additional Instructions: Call the office of your primary care doctor to arrange for follow-up within the above-stated timeframe. Your ED visit was focused on your acute issue and does not replace primary care. You should review your labs, imaging, and diagnoses from this ED visit with your primary care physician. There may be non-emergent/ incidental findings that need further evaluation. You should review your vital signs including blood pressure with your PCP. If you were prescribed medications you should discuss possible side-effects and drug interactions with your pharmacist. Call 911 or go to the nearest Emergency Department if you develop any new or worsening symptoms. Keep your dialysis appointment tomorrow. Attend with a family member or friend, do not drive yourself home this time. 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 Corbin as well as your primary care doctor this week to discuss your episode further. Return to the emergency department if there are any further issues as discussed. Referrals: Physician,Non-Staff, [Primary Care Provider] - 1 week Discharge Date/Time: 10/05/24 21:48
--- NOTE | 2024-10-04 16:23 | XR_ITS ---
The [address] [address] Patient Name: JOE KINCAID MRN: [id number] date: 1960 Sex: F Assigned Patient Location: ED.MAIN Current Patient Location: ED.MAIN Accession/Order Number: [id number] Exam Date: 10/04/2024 16:42 Report Date: 10/04/2024 18:29 At the request of: JOVI GRAY Procedure: XR chest 1V PORTABLE CHEST X-RAY. CLINICAL HISTORY: Shortness of breath COMPARISON: None. TECHNIQUE: Single AP portable chest radiograph. FINDINGS: TUBES AND LINES: None. LUNGS: Lungs are clear. PLEURA: No effusions or pneumothorax. HEART AND MEDIASTINUM: Cardiomegaly. OSSEOUS STRUCTURES: No acute abnormality. XR/XR chest 1V IMPRESSION: 1. Lungs are clear. 2. Cardiomegaly. Electronically authenticated by: GAIL ORTIZ Date: 10/04/2024 18:29
--- NOTE | 2024-10-04 16:23 | ECG_ITS ---
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
[2024-10-04 16:48] LABS: Basophils Absolute Auto 0.1 10^3/uL (0.0-0.1); Basophils Percent Auto 0.4 % (0.2-2.0); Eosinophils Absolute Auto 0.2 10^3/uL (0.0-0.7); Eosinophils Percent Auto 1.3 % (0.9-7.0); Hematocrit 30.8 % (36.0-48.0); Hemoglobin 10.1 g/dL (12.0-16.0); Immature Granulocytes Abs Auto 0.28 10^3/uL (0.00-0.03); Immature Granulocytes Pct Auto 2.3 % (0.0-0.5); Lymphocytes Absolute Auto 2.2 10^3/uL (1.2-3.8); Lymphocytes Percent Auto 17.5 % (20.5-60.0); Mean Corpuscular HGB Conc 32.8 g/dL (29.9-35.2); Mean Corpuscular Hemoglobin 27.2 pg (26.7-34.0); Mean Corpuscular Volume 82.8 fL (81.0-99.0); Mean Platelet Volume 9.6 fL (9.5-13.5); Monocytes Absolute Auto 0.9 10^3/uL (0.3-0.8); Monocytes Percent Auto 7.6 % (1.7-12.0); Neutrophils Absolute Auto 8.7 10^3/uL (1.4-6.5); Neutrophils Percent Auto 70.9 % (43.0-75.0); Platelet Count 243 10^3/uL (150-450); Red Blood Count 3.72 10^6/uL (4.20-5.40); White Blood Count 12.3 10^3/uL (4.0-11.0)
[2024-10-04 16:52] LABS: PCO2 VBG 45.2 mmHg (40.0-52.0)
[2024-10-04 17:00] LABS: Ammonia <10 umol/L (11-32)
[2024-10-04 17:01] LABS: Influenza Virus A Antigen Negative; Influenza Virus B Antigen Negative; Internal Control Within Normal Limits; SARS-CoV-2 Ag NEGATIVE (NEGATIVE)
[2024-10-04 17:02] LABS: Prothrombin Time 10.6 sec (9.0-11.6)
[2024-10-04 17:09] LABS: Lactate/Lactic Acid 1.6 mmol/L (0.4-2.0)
[2024-10-04 17:31] LABS: Acetone NEGATIVE (NEGATIVE)
--- NOTE | 2024-10-04 17:33 | PC.NURSE ---
pt offered zofran d/t pt expressing nausea. pt denies nausea at this time and requests to hold off on medication. Sushma SOSA made aware.
[2024-10-04 17:40] LABS: Alanine Aminotransferase 12 U/L (14-59); Albumin Globulin Ratio 0.6; Albumin Level 3.1 g/dL (3.4-5.0); Alkaline Phosphatase 86 U/L (46-116); Anion Gap 14.4; Aspartate Amino Transferase 11 U/L (15-37); BUN Creatinine Ratio 6.6; Bilirubin Total 0.5 mg/dL (0.2-1.0); Calcium 9.3 mg/dL (8.5-10.1); Carbon Dioxide 30.9 mmol/L (21.0-32.0); Chloride 94 mmol/L (98-107); Estimated GFR (African America 10 (>=60 mL/min/1.73m^2); Estimated GFR (Non-African Ame 8 (>=60 mL/min/1.73m^2); Glucose 264 mg/dL (74-106); Potassium 4.3 mmol/L (3.5-5.1); Sodium 135 mmol/L (136-145); Thyroid Stimulating Hormone 3.876 uIU/mL (0.358-3.740); Total Protein 8.1 g/dL (6.4-8.2); Troponin I High Sensitivity 12.2 pg/mL (4.0-51.3)
[2024-10-04 17:41] LABS: Ethanol <3 mg/dL
[2024-10-04] MEDS: ONDANSETRON PF 4 MG/2 ML VIAL IV (17:41)
[2024-10-04] MEDS: 0.9 % SODIUM CHLORIDE 1,000 ML 1000 ML IV (17:41)
--- NOTE | 2024-10-04 18:19 | PC.NURSE ---
this RN bedside for female mini cath. pt tolerated as expected. pt unable to void on bedpan after multiple attempts. pt states only voiding 2-3 times per day at baseline.
[2024-10-04 18:38] LABS: Bilirubin Urine NEGATIVE (NEGATIVE); Blood Urine SMALL (NEGATIVE); Clarity Urine CLEAR (CLEAR); Color Urine YELLOW (YELLOW); Glucose Urine UA >=1000 mg/dL (NEGATIVE); Ketones Urine TRACE mg/dL (NEGATIVE); Leukocyte Esterase Urine NEGATIVE (NEGATIVE); Nitrite Urine NEGATIVE (NEGATIVE); Protein Urine >=300 mg/dL (NEG/TRACE); Specific Gravity Urine 1.015 (1.005-1.025); Urobilinogen Urine 0.2 EU/dL (0.2-1.0)
[2024-10-04 18:45] LABS: Bacteria Urine SMALL #/HPF (NONE SEEN); RBC Urine 0-2 #/HPF (0-2)
[2024-10-04 18:46] LABS: Amorphous Sediment Urine MANY; Cast Seen? NONE SEEN #/LPF (NONE SEEN); Crystals Seen? Seen #/HPF (None Seen); Mucus Urine NONE SEEN (NONE SEEN); Squamous Epithelial Cell Urine NONE SEEN #/LPF (NONE/RARE); Urine Culture Indicated YES-LC
[2024-10-04 18:47] LABS: Amphetamine Screen Urine NEGATIVE (NEGATIVE); Barbiturates Screen Urine NEGATIVE (NEGATIVE); Benzodiazepines Screen Urine NEGATIVE (NEGATIVE); Buprenorphine Screen Urine NEGATIVE (NEGATIVE); Cannabinoid Screen Urine NEGATIVE (NEGATIVE); Cocaine Screen Urine NEGATIVE (NEGATIVE); Methadone Screen Urine NEGATIVE (NEGATIVE); Methamphetamines Screen Urine NEGATIVE (NEGATIVE); Opiate Screen Urine NEGATIVE (NEGATIVE); Oxycodone Screen Urine NEGATIVE (NEGATIVE); Phencyclidine Screen Urine NEGATIVE (NEGATIVE); Tricyclic Antidepressant Urine NEGATIVE (NEGATIVE)
[2024-10-04] MEDS: GABAPENTIN 300 MG CAPSULE PO (19:05)
[2024-10-04] MEDS: TRAMADOL HCL 50 MG TABLET PO (19:05)
--- NOTE | 2024-10-04 20:10 | PC.NURSE ---
pt provided with food per pt request, pt denies needs of assistance with eating. pt ate food without difficulty or trouble swallowing.
--- NOTE | 2024-10-04 20:11 | PC.NURSE ---
pt ambulatory to restroom with this RN assistance at this time. pt steady with minimal assistance. pt voided without pain or issue.
--- NOTE | 2024-10-04 23:42 | PC.NURSE ---
nursing report given to Vashti ASTUDILLO at this time, all questions answered.
[2024-10-05] VITALS (57 sets, daily range): BP systolic 158–206; BP diastolic 65–98; PULSE 63–89; O2SAT 95–99
[2024-10-05] MEDS: MORPHINE SULFATE 2 MG/ML SYRINGE IV (04:17)
[2024-10-05] MEDS: CARVEDILOL 25 MG TABLET PO (08:55)
[2024-10-05] MEDS: GABAPENTIN 300 MG CAPSULE PO (08:56)
[2024-10-05] MEDS: DOXAZOSIN MESYLATE 2 MG TABLET 8 MG PO (08:56)
[2024-10-05] MEDS: AMLODIPINE BESYLATE 5 MG TABLET 10 MG PO (08:56)
[2024-10-05] MEDS: TRAMADOL HCL 50 MG TABLET PO (13:58)
--- NOTE | 2024-10-05 18:42 | PC.NURSE ---
Spoke with blayne Houston and she is updated on patient condition and that patient had MRI of brain today with negative result. 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
--- NOTE | 2024-10-05 21:25 | PC.NURSE ---
In room awaiting ride arrival. Pt is discharged.
== END 2024-10-05 21:48 | disposition home or self-care (01) ==
PROVIDERS: Physician Assistant; Emergency Provider Emergency Medicine
DX: R41.0 Disorientation, unspecified (principal); N18.6 End stage renal disease; Z99.2 Dependence on renal dialysis; R06.02 Shortness of breath; Z79.01 Long term (current) use of anticoagulants; I26.99 Other pulmonary embolism without acute cor pulmonale; G62.9 Polyneuropathy, unspecified; R73.9 Hyperglycemia, unspecified; R53.1 Weakness; I12.0 Hypertensive chronic kidney disease with stage 5 chronic kidney disease or end stage renal disease; G93.40 Encephalopathy, unspecified; Z79.899 Other long term (current) drug therapy
CPT/HCPCS: 36415; 70450; 70551; 71045; 80053; 80307; 80320; 81001; 82009; 82140; 82800; 83605; 83735; 83880; 84443; 84484; 85025; 85610; 87040; 87086; 87804; 87811; 93005; 96361; 96374; 96375; 99285; J2270; J2405